=== PATIENT | female | born 1955 | race Caucasian/White ===

== ENCOUNTER 2018-01-06 15:20 | Outpatient (CLI) | payer OTHER | END 2018-01-06 23:59 | disposition home or self-care (01) | LOC: RAD 15:20 | PROVIDERS: ATTEND Surgery | DX: Z01.818 Encounter for other preprocedural examination (principal); I70.0 Atherosclerosis of aorta | CPT/HCPCS: 71046 ==

== ENCOUNTER → 2019-02-19 | Outpatient (CLI) | payer OTHER ==
[~2019-02-19] MED LIST: GADOTERIDOL 279.3 MG/ML VIAL IV ONE
== END | disposition home or self-care (01) ==
LOC: MRI 02-18 10:31
PROVIDERS: ATTEND Surgery
DX: G93.89 Other specified disorders of brain (principal); J34.89 Other specified disorders of nose and nasal sinuses; J32.9 Chronic sinusitis, unspecified
CPT/HCPCS: 70553; A9579

== ENCOUNTER 2020-09-14 14:05 | Outpatient (CLI) | payer OTHER | END 2020-09-14 23:59 | disposition home or self-care (01) | LOC: RAD 14:05 | PROVIDERS: ATTEND Surgery | DX: Z01.818 Encounter for other preprocedural examination (principal); I70.0 Atherosclerosis of aorta | CPT/HCPCS: 71046 ==

== ENCOUNTER 2021-07-10 14:13 | Outpatient (CLI) | payer OTHER ==
[2021-07-10] MEDS ORDERED: BARIUM SULFATE SUSP 450 ML BOTTLE PO ONE (14:29)
[2021-07-10] MEDS ORDERED: BARIUM SULFATE 98% 135 ML SUSP.RECON PO ONE (14:29)
== END 2021-07-10 23:59 | disposition home or self-care (01) ==
LOC: RAD 14:13
PROVIDERS: ATTEND Surgery
DX: R11.10 Vomiting, unspecified (principal)
CPT/HCPCS: 74246-TC

== ENCOUNTER 2022-01-22 09:43 | Outpatient (CLI) | payer OTHER ==
[2022-01-22] MEDS ORDERED: BARIUM SULFATE 98% 135 ML SUSP.RECON PO ONE (09:49)
== END 2022-01-22 23:59 | disposition home or self-care (01) ==
LOC: RAD 09:43
PROVIDERS: ATTEND Surgery
DX: K21.9 Gastro-esophageal reflux disease without esophagitis (principal); Z98.890 Other specified postprocedural states
CPT/HCPCS: 74246-TC